=== PATIENT | female | born 2000 | race Caucasian/White ===

== ENCOUNTER 2022-03-18 08:10 | Emergency (ER) | payer OTHER, SELFPAY ==
--- NOTE | ~2022-03-18 | XR_ITS ---
AP and lateral views of the right tibia/fibula Clinical History: Trauma Findings: No acute fracture or dislocation is seen. Osseous alignment is anatomic. Joint spaces are p reserved without significant erosive or degenerative change. Soft tissues are unremarkable. Impression: Unremarkable right tib-fib radiographs. Reviewed, dictated and finalized at [facility]. [employer] Impression: Unremarkable right tib-fib radiographs.
[2022-03-18 08:47] VITALS: BP 109/70; PULSE 59; RESP 16; TEMP 36.2; O2SAT 100
--- NOTE | 2022-03-18 09:18 | ED.LOWEXIN ---
HPI - Extremity Injury (Lower) General Chief Complaint: Extremity Injury, Lower Stated Complaint: rt leg injury Time Seen by Provider: 03/18/22 09:18 Source: patient Mode of arrival: ambulatory Limitations: no limitations History of Present Illness HPI Narrative: 21-year-old female presented for complaint of right lower leg pain after injury 2 weeks ago. States she fell and struck the mccrary on the lift of a truck. She continues to report bruising and tenderness to the site. Denies pain at rest or with walking. Only has severe pain with applying pressure to the bruised area. Endorses numbness and tingling to the lateral aspect of the bruised area. Patient also reports rash to her torso, Onset 2 weeks. Started as 1 lesion to the right thigh. Reports small flat red bumps across to the ribs and under breasts, denies itching, pain, or drainage. She denies changes to lotion, soap, detergent or any medication. She endorses she has been trying on wedding dresses. Has not applied anything to the sites as they do not cause her issues. Denies any contacts with similar symptoms. Related Data Home Medications Medication Instructions Recorded Confirmed magnesium glycinate 100 mg tablet 100 mg PO DAILY 03/18/22 03/18/22 [id number] 3 1 tablet PO DAILY 03/18/22 03/18/22 mg-lutein 3 mg-herbal [id number] 200 mg tablet (PhytoMulti) Allergies Allergy/AdvReac Type Severity Reaction Status Date / Time banana Allergy Unknown Verified 03/18/22 08:52 Review of Systems Review of Systems: CONSTITUTIONAL: Denies body aches, fever, chills EYES: Denies visual changes ENT: Denies rhinorrhea, congestion CARDIOVASCULAR: Denies chest pain, palpitations, or edema. RESPIRATORY: Denies cough or dyspnea. GASTROINTESTINAL: Denies abdominal pain, nausea, vomiting, or diarrhea. SKIN: Denies itching, or wounds. MUSCULOSKELETAL: Denies back pain, joint pain, or myalgia. NEUROLOGIC: Denies headache, numbness, tingling, or weakness. All systems reviewed & are unremarkable except as noted in HPI and below PMFSH Past Medical History Medical History (Updated 03/18/22 @ 10:43 by Genna Leija, DIMPLE) No pertinent past medical history Comments At time of signature, I have reviewed and agree with nursing past medical, surgical, social and family history unless otherwise noted. Please see nursing chart for further information. There is no relevant family history pertinent to the presenting complaint Exam Narrative: GENERAL: Well-appearing, well-nourished, and in no acute distress. CHEST: Speaks in full sentences. No respiratory distress. HEART: Regular rate and rhythm. Normal and equal peripheral pulses. EXTREMITIES: Right mccrary with contusion approx 4cm diameter, mild swelling, tender with light palpation; RLE has normal strength and sensation, normal range of motion. Pulse palpable and equal bilaterally, skin warm, dry, pink. Capillary refill less than 3 seconds. SKIN: Warm, dry. Scattered erythematous round scaly lesions to bilateral ribs c/w ringworm; no drainge, nontender NEURO: Alert and oriented x3. PSYCH: Normal mood and affect Course Course Emergency Course: Patient is aware of diagnosis, understands and agrees to treatment plan. Anticipatory guidance given. Patient agrees to follow-up as directed and is aware of reasons to seek care at the emergency department. Portions of this record may have been created with voice recognition software Level of Care: Express Care Visit Vital Signs Vital signs: Vital Signs Temperature 97.1 F L 03/18/22 08:47 Pulse Rate 59 L 03/18/22 08:47 Respiratory Rate 16 03/18/22 08:47 Blood Pressure 109/70 03/18/22 08:47 Pulse Oximetry 100 03/18/22 08:47 Oxygen Delivery Room Air 03/18/22 08:47 Temperature 97.1 F L 03/18/22 08:47 Pulse Rate 59 L 03/18/22 08:47 Respiratory Rate 16 03/18/22 08:47 Blood Pressure 109/70 03/18/22 08:47 Pulse Oximetry 100 0
== END 2022-03-18 10:39 | disposition home or self-care (01) ==
PROVIDERS: Emergency Provider Nurse Practitioner Family
DX: S80.11XA Contusion of right lower leg, initial encounter (principal); B35.9 Dermatophytosis, unspecified; W19.XXXA Unspecified fall, initial encounter
CPT/HCPCS: 73590; 99213; G0463